=== PATIENT | male | born 1995 | race African-American/Black ===

== ENCOUNTER 2019-01-17 21:44 | Emergency (ER) | payer OTHER ==
[2019-01-17] MEDS ORDERED: Mupirocin 2% OINT* TUBE TOPICAL ONE (22:04)
--- NOTE | 2019-01-17 22:12 | UC ---
Complaint Male HPI - HPI Summary HPI Summary: 23-year-old male comes in with a chief complaint of sores on his penis. They started 5 days ago after having intercourse with his boyfriend. They're on both sides of the penis. Denies any dysuria any concern of an STI. As far as he knows boyfriend does not have any STI's or any history of herpes. They do hurt. Has not seen any vesicles. No fevers no chills feels well otherwise. - History of Current Complaint Stated Complaint: SORES NEAR GROIN Time Seen by Provider: 01/17/19 21:50 - Allergies/Home Medications Allergies/Adverse Reactions: Allergies Allergy/AdvReac Type Severity Reaction Status Date / Time No Known Allergies Allergy Verified 11/11/18 16:46 PMH/Surg Hx/FS Hx/Imm Hx Previously Healthy: Yes - Surgical History Surgical History: None - Family History Known Family History: Positive: None - Social History Alcohol Use: Occasionally Substance Use Type: None Smoking Status (MU): Never Smoked Tobacco Review of Systems All Other Systems Reviewed And Are Negative: Yes Constitutional: Positive: Negative Skin: Positive: Other - SEE HPI Eyes: Positive: Negative ENT: Positive: Negative Respiratory: Positive: Negative Cardiovascular: Positive: Negative Gastrointestinal: Positive: Negative Genitourinary: Positive: Ulceration/Lesion. Negative: Dysuria, Frequency, Urgency, Vaginal/Penile Discharge Motor: Positive: Negative Neurovascular: Positive: Negative Musculoskeletal: Positive: Negative Neurological: Positive: Negative Psychological: Positive: Negative Is Patient Immunocompromised?: No Physical Exam Triage Information Reviewed: Yes Appearance: Well-Appearing, No Pain Distress, Well-Nourished Vital Signs Reviewed: Yes Eye Exam: Normal Eyes: Positive: Conjunctiva Clear Neck: Positive: Supple Respiratory: Positive: No respiratory distress Male Genital Exam: Positive: Lesions - ON THE PENIS, TWO ULCERATIONS 2MM IN SIZE ON THE LEFT SIDE. A HEALING ON 1MM DIAMETER IS ON THE RIGHT SIDE OF THE PENIS. Musculoskeletal: Positive: Strength Intact, ROM Intact Neurological: Positive: Alert, Muscle Tone Normal Psychological Exam: Normal Psychological: Positive: Age Appropriate Behavior Skin: Positive: Other - ON THE PENIS, TWO ULCERATIONS 2MM IN SIZE ON THE LEFT SIDE. A HEALING ON 1MM DIAMETER IS ON THE RIGHT SIDE OF THE PENIS. Complaint Male Course/Dx - Differential Dx/Diagnosis Provider Diagnosis: Rash of penis Discharge - Sign-Out/Discharge Documenting (check all that apply): Patient Departure All imaging exams completed and their final reports reviewed: No Studies - Discharge Plan Condition: Stable Disposition: HOME Patient Education Materials: Acute Rash (ED) Referrals: [facility] [place]] [facility] [Outside] Additional Instructions: FOLLOW UP WITH YOUR DOCTOR IF NOT COMPLETELY IMPROVED. IF THE CULTURE IS POSITIVE FOR HERPES, YOU WILL NEED TO START AN ANTIVIRAL TREATMENT. IF THE LESIONS DO NOT IMPROVED, GET RECHECKED. GET RECHECKED SOONER IF YOUR CONDITION WORSENS OR ANY QUESTIONS OR CONCERNS. - Billing Disposition and Condition Condition: STABLE Disposition: Home
[2019-01-17 22:14] VITALS: BP 118/71
== END 2019-01-17 22:22 | disposition home or self-care (01) ==
LOC: UCEAST 21:44
DX: N48.89 Other specified disorders of penis (principal)
CPT/HCPCS: 87529; 99212; G0463